=== PATIENT | male | born 1935 | race Caucasian/White ===

== ENCOUNTER → 2017-01-12 | Outpatient (CLI) | payer OTHER, MEDICARE ==
[2017-01-12 12:00] LABS: BLOOD UREA NITROGEN 25 mg/dL (7-22); BUN/CREATININE RATIO 15.62 (6-20); CALCIUM 9.9 mg/dL (8.7-10.7); CHLORIDE 103 meq/L (98-112); CREATININE 1.6 mg/dL (0.70-1.50); GLUCOSE 86 mg/dL (78-110); SODIUM 140 meq/L (135-145)
[2017-01-12 12:07] LABS: HEMOGLOBIN A1C 7.57 % (4.2-6.0); MEAN BLOOD GLUCOSE (CALC) 166.081 mg/dL
== END ==
LOC: MOB LAB 10:25
DX: E11.9 Type 2 diabetes mellitus without complications (principal); F17.210 Nicotine dependence, cigarettes, uncomplicated
CPT/HCPCS: 36415; 80048; 83036

== ENCOUNTER → 2017-01-19 | Outpatient (CLI) | payer OTHER, MEDICARE | LOC: MMPC 09:00 | PROVIDERS: ATTEND Nurse Practitioner Family | DX: H92.02 Otalgia, left ear (principal) | CPT/HCPCS: 99213; G0463 ==

== ENCOUNTER → 2017-05-03 | Outpatient (CLI) | payer OTHER, MEDICARE ==
[2017-05-03 17:14] LABS: HEMOGLOBIN A1C 7.64 % (4.2-6.0)
[2017-05-03 17:24] LABS: BLOOD UREA NITROGEN 38 mg/dL (7-22); BUN/CREATININE RATIO 18.09 (6-20); CALCIUM 9.7 mg/dL (8.7-10.7)
== END ==
LOC: MOB LAB 16:04
DX: E11.9 Type 2 diabetes mellitus without complications (principal); E78.5 Hyperlipidemia, unspecified; E03.9 Hypothyroidism, unspecified; N28.9 Disorder of kidney and ureter, unspecified; J44.9 Chronic obstructive pulmonary disease, unspecified; E55.9 Vitamin D deficiency, unspecified; Z85.46 Personal history of malignant neoplasm of prostate
CPT/HCPCS: 36415; 80048; 82306; 83036; 84153; 84443

== ENCOUNTER 2019-10-27 11:20 | Inpatient (IN) ==
[2019-10-27] MEDS ORDERED: methylPREDNISolone 125 MG/2 ML VIAL IVP ONE (11:37)
[2019-10-27] MEDS ORDERED: IPRATROPIUM/ALBUTEROL SULFATE 3 ML NEB NEB ONE (11:37)
[2019-10-27] MEDS: Sodium Chloride 0.9% 1,000 ML PRIMARY IV ONE ×2 (11:58→14:06)
[2019-10-27 12:03] LABS: BASOPHILS # (AUTO) 0.02 10*3/UL; BASOPHILS % (AUTO) 0.1 % (0-1); EOSINOPHILS # (AUTO) 0.01 10*3/UL; EOSINOPHILS % (AUTO) 0 % (0-8); Hematocrit [HCT] 41.5 % (42.0-52.0); LYMPHOCYTES # (AUTO) 1.11 10*3/uL; MEAN CORPUSCULAR HGB CONC 33.7 g/dL (33-37); MEAN CORPUSCULAR VOLUME 83.5 FL (80-90); MEAN PLATELET VOLUME 10.4 FL (7.4-12.2); MONOCYTES # (AUTO) 1.35 10*3/UL (0.3-0.8); MONOCYTES % (AUTO) 5.1 % (5-15); NEUTROPHILS # (AUTO) 23.24 10*3/UL; RED BLOOD COUNT 4.97 10^6/uL (4.70-6.10)
[2019-10-27 12:17] LABS: PLATELET MORPHOLOGY COMMENT NORMAL MORPHOLOGY (NORM); RBC MORPHOLOGY COMMENT NORMAL MORPHOLOGY (NORM); WBC MORPHOLOGY COMMENT NORMAL MORPHOLOGY (NORM)
[2019-10-27] MEDS ORDERED: cefTRIAXone Inj 1 GM in Sodium Chloride 0.9% 100 ML IV ONE (12:17)
[2019-10-27] MEDS ORDERED: DOXYCYCLINE HYCLATE 100 MG VIAL IV ONE (12:19)
[2019-10-27 13:17] LABS: BUN/CREATININE RATIO 31.36 (6-20); SERUM ALBUMIN 3.1 g/dL (3.5-4.8)
[2019-10-27] MEDS ORDERED: INSULIN REGULAR, HUMAN 100 UNIT/1 ML - 3 ML SUBCUT ONE (13:30)
[2019-10-27] MEDS ORDERED: Sodium Chloride 0.9% 500 ML PRIMARY IV ONE (13:47)
[2019-10-27] MEDS ORDERED: Ondansetron ODT Tab 4 MG TAB PO PRN (14:50)
[2019-10-27] MEDS ORDERED: LIDOCAINE W/ SODIUM BICARB 0.5 ML SYR SUBD PRN (14:50)
[2019-10-27] MEDS: IPRATROPIUM/ALBUTEROL SULFATE 3 ML NEB NEB SCH ×2 (15:32→19:42)
[2019-10-27] MEDS: Lactated Ringers 1,000 ML PRIMARY IV SCH (16:19)
[2019-10-27] MEDS: Insulin Lispro Flexpen 300 UNIT/3 ML INSULN.PEN SUBCUT SCH (16:22)
[2019-10-27] MEDS ORDERED: ACETAMINOPHEN 325 MG TABLET PO PRN (16:48)
[2019-10-27] MEDS: FLUTICASONE/SALMETEROL 250/50 UD INHALER INH SCH (19:50)
[2019-10-27] MEDS ORDERED: Insulin Lispro Flexpen 300 UNIT/3 ML INSULN.PEN SUBCUT ONE (20:27)
[2019-10-27] MEDS ORDERED: Insulin Glargine SoloStar Inj 100 UNIT/ML INSULN.PEN SUBCUT SCH (21:00)
[2019-10-27] MEDS: methylPREDNISolone 40 MG/1 ML VIAL IVP SCH (21:12)
[2019-10-27] MEDS: Simvastatin Tab 10 MG TAB PO SCH (21:12)
[2019-10-28] MEDS: Lactated Ringers 1,000 ML PRIMARY IV SCH ×2 (00:22→12:11)
[2019-10-28] MEDS: LEVOTHYROXINE 50 MCG TABLET PO SCH (04:35)
[2019-10-28 05:08] LABS: BASOPHILS # (AUTO) 0.01 10*3/UL; BASOPHILS % (AUTO) 0 % (0-1); EOSINOPHILS # (AUTO) 0 10*3/UL; EOSINOPHILS % (AUTO) 0 % (0-8); Hematocrit [HCT] 35.8 % (42.0-52.0); Hemoglobin [HGB] 12.1 g/dL (14.0-18.0); LYMPHOCYTES # (AUTO) 0.97 10*3/uL; MEAN CORPUSCULAR HGB CONC 33.8 g/dL (33-37); MEAN CORPUSCULAR VOLUME 85.9 FL (80-90); MEAN PLATELET VOLUME 10.5 FL (7.4-12.2); MONOCYTES # (AUTO) 0.34 10*3/UL (0.3-0.8); MONOCYTES % (AUTO) 1.4 % (5-15); NEUTROPHILS # (AUTO) 22.62 10*3/UL; NEUTROPHILS % (AUTO) 92.6 % (50-80); RED BLOOD COUNT 4.17 10^6/uL (4.70-6.10)
[2019-10-28 05:22] LABS: PLATELET MORPHOLOGY COMMENT NORMAL MORPHOLOGY (NORM); RBC MORPHOLOGY COMMENT NORMAL MORPHOLOGY (NORM); WBC MORPHOLOGY COMMENT NORMAL MORPHOLOGY (NORM)
[2019-10-28 05:31] LABS: BUN/CREATININE RATIO 33.52 (6-20); SERUM ALBUMIN 2.6 g/dL (3.5-4.8)
[2019-10-28] MEDS: Insulin Lispro Flexpen 300 UNIT/3 ML INSULN.PEN SUBCUT SCH ×3 (06:59→16:45)
[2019-10-28] MEDS: IPRATROPIUM/ALBUTEROL SULFATE 3 ML NEB NEB SCH ×4 (07:01→19:02)
[2019-10-28] MEDS: FLUTICASONE/SALMETEROL 250/50 UD INHALER INH SCH ×2 (07:01→19:04)
[2019-10-28] MEDS ORDERED: Saline Nasal Mist (Baby) 90 Sprays/45 ml Bottle ENOS PRN (07:30)
[2019-10-28] MEDS ORDERED: SODIUM CHLORIDE 44 ML SPRAY ENOS PRN (07:47)
[2019-10-28] MEDS: LORATADINE 10 MG TABLET PO SCH (08:34)
[2019-10-28] MEDS: CHOLECALCIFEROL 1000 IU TABLET PO SCH (08:34)
[2019-10-28] MEDS: FAMOTIDINE 40 MG TABLET PO SCH (08:35)
[2019-10-28] MEDS: methylPREDNISolone 40 MG/1 ML VIAL IVP SCH ×2 (08:36→20:43)
[2019-10-28] MEDS: LINAGLIPTIN 5 MG PO SCH (08:36)
[2019-10-28] MEDS: cefTRIAXone Inj 2 GM in Sodium Chloride 0.9% 100 ML IV SCH (13:46)
[2019-10-28] MEDS: Simvastatin Tab 10 MG TAB PO SCH (20:44)
[2019-10-28] MEDS ORDERED: Insulin Glargine SoloStar Inj 100 UNIT/ML INSULN.PEN SUBCUT SCH (21:00)
[2019-10-29] MEDS: Lactated Ringers 1,000 ML PRIMARY IV SCH (00:09)
[2019-10-29 04:25] LABS: BASOPHILS # (AUTO) 0 10*3/UL; BASOPHILS % (AUTO) 0 % (0-1); EOSINOPHILS # (AUTO) 0 10*3/UL; EOSINOPHILS % (AUTO) 0 % (0-8); Hematocrit [HCT] 37.5 % (42.0-52.0); Hemoglobin [HGB] 12.5 g/dL (14.0-18.0); LYMPHOCYTES # (AUTO) 0.96 10*3/uL; MEAN CORPUSCULAR HGB CONC 33.3 g/dL (33-37); MEAN CORPUSCULAR VOLUME 85.6 FL (80-90); MEAN PLATELET VOLUME 10.1 FL (7.4-12.2); MONOCYTES # (AUTO) 0.56 10*3/UL (0.3-0.8); NEUTROPHILS # (AUTO) 25.56 10*3/UL; NEUTROPHILS % (AUTO) 91.7 % (50-80); RED BLOOD COUNT 4.38 10^6/uL (4.70-6.10)
[2019-10-29] MEDS: LEVOTHYROXINE 50 MCG TABLET PO SCH (04:34)
[2019-10-29 04:37] LABS: PLATELET MORPHOLOGY COMMENT NORMAL MORPHOLOGY (NORM); RBC MORPHOLOGY COMMENT NORMAL MORPHOLOGY (NORM); WBC MORPHOLOGY COMMENT NORMAL MORPHOLOGY (NORM)
[2019-10-29 04:51] LABS: BUN/CREATININE RATIO 26.66 (6-20)
[2019-10-29] MEDS: IPRATROPIUM/ALBUTEROL SULFATE 3 ML NEB NEB SCH ×2 (06:43→10:52)
[2019-10-29] MEDS: FLUTICASONE/SALMETEROL 250/50 UD INHALER INH SCH (06:44)
[2019-10-29] MEDS: Insulin Lispro Flexpen 300 UNIT/3 ML INSULN.PEN SUBCUT SCH ×2 (07:45→12:07)
[2019-10-29] MEDS ORDERED: predniSONE Tab 20 MG TAB PO SCH (09:15)
[2019-10-29] MEDS: LINAGLIPTIN 5 MG PO SCH (09:21)
[2019-10-29] MEDS: LORATADINE 10 MG TABLET PO SCH (09:22)
[2019-10-29] MEDS: CHOLECALCIFEROL 1000 IU TABLET PO SCH (09:23)
[2019-10-29] MEDS: FAMOTIDINE 40 MG TABLET PO SCH (09:23)
[2019-10-29 11:39] VITALS: BP 119/44; RESP 32; TEMP 97.6
[2019-10-29] MEDS: cefTRIAXone Inj 2 GM in Sodium Chloride 0.9% 100 ML IV SCH (12:08)
[2019-10-29 13:05] VITALS: O2SAT 91
== END 2019-10-29 14:54 | disposition home or self-care (01) | DRG 190 ==
LOC: ER 11:20 → MED/SURG 14:08
PROVIDERS: ADMIT Internal Medicine; ATTEND Internal Medicine